=== PATIENT | male | born 1990 | race African-American/Black ===

== ENCOUNTER 2018-02-12 17:01 | Emergency (ER) | payer OTHER ==
[~2018-02-12] VITALS: Ht 193 cm; Wt 155.0 kg
[~2018-02-12 17:01] MED LIST: ALBU6.7H3
[2018-02-12 17:06] VITALS: BP 118/72
== END 2018-02-12 20:45 | disposition left against medical advice (07) ==
LOC: ER 17:03
DX: Z53.21 Procedure and treatment not carried out due to patient leaving prior to being seen by health care provider (principal)